=== PATIENT | female | born 1995 | race Caucasian/White ===

== ENCOUNTER 2019-11-25 20:39 | Emergency (ER) | payer OTHER ==
[~2019-11-25] VITALS: Ht 165.1 cm; Wt 90.7 kg
[~2019-11-25 20:39] MED LIST: ZEBUTAL CAPSULE1 CAP PO
== END 2019-11-25 23:23 | disposition home or self-care (01) ==
LOC: ER 20:39
DX: R06.02 Shortness of breath (principal); R50.9 Fever, unspecified; F41.8 Other specified anxiety disorders; Z03.818 Encounter for observation for suspected exposure to other biological agents ruled out

== ENCOUNTER 2020-10-04 16:18 | Emergency (ER) | payer OTHER ==
[~2020-10-04] VITALS: Ht 162.6 cm; Wt 83.9 kg
== END 2020-10-04 19:57 | disposition home or self-care (01) ==
LOC: ER 16:18
DX: R60.0 Localized edema (principal); T50.Z95A Adverse effect of other vaccines and biological substances, initial encounter